=== PATIENT | female | born 1970 | race Caucasian/White ===

== ENCOUNTER → 2016-08-09 | Outpatient (CLI) | payer BC, OTHER | LOC: FIMAGING 08:51 | PROVIDERS: ATTEND Family Medicine | DX: R07.89 Other chest pain (principal); Q67.6 Pectus excavatum ==

== ENCOUNTER → 2017-03-20 | Outpatient (CLI) | payer BC, OTHER | LOC: BMCIMAGING 10:32 | PROVIDERS: ATTEND Emergency Medicine | DX: S69.91XA Unspecified injury of right wrist, hand and finger(s), initial encounter (principal) ==

== ENCOUNTER → 2017-04-08 | Outpatient (CLI) | payer BC, OTHER | LOC: FIMAGING 07:58 | PROVIDERS: ATTEND Obstetrics & Gynecology | DX: Z12.31 Encounter for screening mammogram for malignant neoplasm of breast (principal) ==

== ENCOUNTER → 2018-08-23 | Outpatient (CLI) | payer OTHER | LOC: FIMAGING 13:30 | PROVIDERS: ATTEND Obstetrics & Gynecology | DX: Z12.31 Encounter for screening mammogram for malignant neoplasm of breast (principal) ==